=== PATIENT | male | born 1995 | race Caucasian/White ===

== ENCOUNTER → 2017-02-25 | Outpatient (CLI) | payer BC ==
--- NOTE | 2017-02-25 16:26 | CR ---
EXAMINATION: Soft tissue neck HISTORY: Swelling COMPARISON: None TECHNIQUE: 2 views FINDINGS: There is no acute osseous abnormality, dislocation, or fracture identified. The prevertebr al soft tissues appear normal. The epiglottis is unremarkable. The subglottic airway is normal. Ther e is no definite mass or asymmetry noted within the dorsal aspect of the neck within the soft tissue s. IMPRESSION: 1. No mass identified within the dorsal soft tissues, if symptoms persist follow-up of the area with ultrasound may be beneficial.
== END ==
LOC: MW.CHFP 13:18
PROVIDERS: ATTEND Family Medicine
DX: R22.1 Localized swelling, mass and lump, neck (principal)
CPT/HCPCS: 70360; 70360-26